=== PATIENT | male | born 1995 | race Asian ===

== ENCOUNTER 2016-07-05 08:18 | Emergency (ER) | payer OTHER ==
[2016-07-05 08:24] VITALS: BP 129/78
--- NOTE | 2016-07-05 08:41 | ED ---
Throat Pain/Nasal Congestion - HPI Summary HPI Summary: Patient presents with swelling of his uvula that began this morning. He denies fever, chills, sore throat, or recent URI. He does have seasonal allergies that have been worse recently. The uvula is hanging down and causing him to gag. He denies trauma, or smoking. This has never happened before and he has not taken any medications. - History of Current Complaint Chief Complaint: EDGeneral Time Seen by Provider: 07/05/16 08:34 Hx Obtained From: Patient Onset/Duration: Gradual Onset Severity: Moderate Associated Signs And Symptoms: Positive: Negative Cough: None - Allergies/Home Medications Allergies/Adverse Reactions: Allergies Allergy/AdvReac Type Severity Reaction Status Date / Time No Known Allergies Allergy Verified 03/04/14 06:48 PMH/Surg Hx/FS Hx/Imm Hx Previously Healthy: Yes Endocrine/Hematology History: Denies: Hx Diabetes Cardiovascular History: Denies: Hx Congestive Heart Failure, Hx Hypertension History: Denies: Hx Renal Disease Sensory History: Reports: Hx Contacts or Glasses Opthamlomology History: Reports: Hx Contacts or Glasses - Cancer History Hx Chemotherapy: No - Surgical History Surgery Procedure, Year, and Place: benign cyst removed to his neck Hx Anesthesia Reactions: No Infectious Disease History: No Infectious Disease History: Denies: Traveled Outside the [place] in Last 30 Days - Family History Known Family History: Positive: None - Social History Occupation: Student Lives: With Family Alcohol Use: Weekly Substance Use Type: Reports: Marijuana Smoking Status (MU): Never Smoked Tobacco Review of Systems Negative: Fever, Chills Negative: Sore Throat, Ear Ache Negative: Cough Negative: Myalgia Negative: Headache All Other Systems Reviewed And Are Negative: Yes Physical Exam - Summary Physical Exam Summary: Patient seated on exam table in no acute distress. Triage Information Reviewed: Yes Vital Signs On Initial Exam: Initial Vitals Temp Pulse Resp BP Pulse Ox 97.9 F 66 20 129/78 99 07/05/16 08:20 07/05/16 08:20 07/05/16 08:20 07/05/16 08:20 07/05/16 08:20 Vital Signs Reviewed: Yes Appearance: Positive: Well-Appearing, No Pain Distress, Well-Nourished Skin: Positive: Warm, Skin Color Reflects Adequate Perfusion, Dry, Soft Head/Face: Positive: Normal Head/Face Inspection Eyes: Positive: EOMI, JENNIFER, Conjunctiva Clear ENT: Positive: Hearing grossly normal, Pharynx normal, TMs normal. Negative: Pharyngeal erythema, Tonsillar swelling, Tonsillar exudate, Trismus, Muffled/ hoarse voice Neck: Positive: Supple, Nontender, No Lymphadenopathy Respiratory/Lung Sounds: Positive: Clear to Auscultation, Breath Sounds Present Cardiovascular: Positive: RRR Musculoskeletal: Negative: Edema Left, Edema Right Neurological: Positive: Sensory/Motor Intact, Alert, Oriented to Person Place, Time, NV Bundle Intact Distally Psychiatric: Positive: Affect/Mood Appropriate AVPU Assessment: Alert Diagnostics - Vital Signs Vital Signs Temp Pulse Resp BP Pulse Ox 07/05/16 08:24 97.9 F 76 20 129/78 97 07/05/16 08:20 97.9 F 66 20 129/78 99 - Laboratory Lab Statement: Any lab studies that have been ordered have been reviewed, and results considered in the medical decision making process. EENT Course/Dx - Differential Diagnoses Differential Diagnoses: Allergic Rhinitis, Epiglottitis, Keratitis, Laryngitis, Mastoiditis, Peritonsillar Ulcer, Pharyngitis, Sinusitis, Tonsilitis - Diagnoses Provider Diagnoses: Uvular edema Discharge - Discharge Plan Condition: Stable Disposition: HOME Prescriptions: predniSONE TAB* [Deltasone TAB*] 40 mg PO DAILY #10 tab Patient Education Materials: Uvulitis (ED) Referrals: Augustine Varner MD [Medical Doctor] - [facility] [Outside] Additional Instructions: Please take the steroid until it is completely gone in combination with Benadryl 50mg every 6 hours. Follow-up with Dr. Varner's office if symptoms reoccur. Return to the emergency department if symptoms worsen.
[2016-07-05] MEDS ORDERED: Dexamethasone TAB* 4 MG PO ONE (08:48)
[2016-07-05] MEDS ORDERED: diPHENhydraMINE PO* 25 MG PO ONE (08:48)
== END 2016-07-05 09:41 | disposition home or self-care (01) ==
LOC: ED 08:18
DX: R60.9 Edema, unspecified (principal)
CPT/HCPCS: 87651; 99282; A9270-GY